=== PATIENT | male | born 1980 | race African-American/Black ===

== ENCOUNTER 2017-02-14 13:14 | Emergency (ER) | payer OTHER ==
[2017-02-14 13:20] VITALS: BP 132/75; PULSE 55; TEMP 98; BMI 28.7
--- NOTE | 2017-02-14 14:14 | PDOC ---
History of Present Illness - General History Source: Patient Exam Limitations: No Limitations - History of Present Illness Initial Comments: 02/14/17 14:20 Patient is a 36 year old male with no pertinent past medical history, presents to the emergency department with 2 weeks of right foot pain. Patient has a history of several broken metatarsals requiring surgical repair in 2012. Patient had broke his metatarsals after falling down stairs at work. Patient was evaluated here for the trauma but was ultimately transferred to [facility] and had surgery done . His last follow up with his doctor was a year ago . He state he has been fine up until two weeks ago. Patient state the pain is worse by the 4th and 1nd MT medially. Pain is 5/10 at rest and provoked with weight bearing and ambulation bringing it to a 9/10. Patient takes Tylenol with mild symptom relief.He reports today he has felt tingling 3rd-5th toes which he has not felt before .Denies recent trauma. 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 Denies special foot wear. Denies any fever or chills. <Kirt Haney - Last Filed: 02/14/17 14:24> - General History Source: Patient Exam Limitations: No Limitations - History of Present Illness Initial Comments: 02/14/17 16:06 Occurred: reports: other (2 weeks ) Severity: Yes: severe (with standing rt. foot ) Lower Extremity Pain Location: right: foot (1 st metarsal and 4th metaral ) Method of Injury: Yes: unknown Modifying Factors: improves with: rest <Ju Rahman - Last Filed: 02/14/17 19:02> - General Chief Complaint: Pain Stated Complaint: LEG PAIN Time Seen by Provider: 02/14/17 13:59 Lower Ext. Injury Location - Specific Injury Location Foot: right foot pain (rt. 1t & 4th metatarsal for 2 weeks worse with standing ) , right foot other (tingling rt. 3-5th toes today ) <Ju Rahman - Last Filed: 02/14/17 19:02> Extremity Pain Location - Extremity Pain Location Extremity Pain Locations: right: foot (1st and 4th metatarsals ), other (toes rt. 3-5 tingling today ) <Josiah,Kim - Last Filed: 02/14/17 19:02> Past History <Kirt Haney - Last Filed: 02/14/17 14:24> - Past Medical History Anemia: No Asthma: No Cancer: No Cardiac Disorders: No CVA: No COPD: No CHF: No Dementia: No Diabetes: No GI Disorders: No Disorders: No HTN: No Hypercholesterolemia: No Liver Disease: No Seizures: No Thyroid Disease: No - Surgical History Orthopedic Surgery: Yes (surgical repair rt. foot 1-5th metatarsal 2013 due to fractures ) Other Surgical History: 02/14/17 14:13 02/14/17 14:13 02/14/17 14:13 - Psycho/Social/Smoking Cessation Hx Suicidal Ideation: No Smoking Status: Yes Smoking History: Current some day smoker Have you smoked in the past 12 months: Yes Number of Cigarettes Smoked Daily: 1 Cigars Per Day: 1 Information on smoking cessation initiated: No 'Breaking Loose' booklet given: 03/20/13 Hx Alcohol Use: Yes (OCCASIONALLY) Drug/Substance Use Hx: No Substance Use Type: Alcohol Hx Substance Use Treatment: No <JosiahJu - Last Filed: 02/14/17 19:02> - Past Medical History Allergies/Adverse Reactions: Allergies Allergy/AdvReac Type Severity Reaction Status Date / Time No Known Drug Allergies Allergy Verified 02/14/17 13:20 Home Medications: Ambulatory Orders Naproxen [Naprosyn -] 500 mg PO BID PRN #14 tablet 02/14/17 Review of Systems - Review of Systems Able to Perform ROS?: Yes Constitutional: No: Symptoms Reported HEENTM: No: Symptoms Reported Respiratory: No: Symptoms reported Cardiac (ROS): No: Symptoms Reported ABD/GI: No: Symptoms Reported : No: Symptoms Reported Musculoskeletal: Yes: Joint Pain (rt. 1st and 4th metatarsal tenderness for 2 weeks worse with standing ). No: Joint Swelling Integumentary: No: Symptoms Reported Neurological: Yes: Paresthesia (rt 3-5 toes ) <JosiahJu - Last Filed: 02/14/17 19:02> *Physical Exam - Vital Signs Last Vital Signs Temp Pulse Resp BP Pulse Ox 98 F 55 L 18 132/75 100 02/14/17 13:18 02/14/17 13:18 02/14/17 13:18 02/14/17 13:18 02/14/17 13:18 <Kirt Haney - Last Filed: 02/14/17 14:24> - Vital Signs Last Vital Signs Temp Pulse Resp BP Pulse Ox 98 F 55 L 18 132/75 100 02/14/17 13:18 02/14/17 13:18 02/14/17 13:18 02/14/17 13:18 02/14/17 13:18 - Physical Exam General Appearance: Yes: Appropriately Dressed Vascular Pulses: Dorsalis-Pedis (R): 4+ Extremity: positive: Normal Capillary Refill, Normal Inspection, Normal Range of Motion, Tender (rt. 1st & 4th metatarsal ). negative: Swelling Integumentary: positive: Normal Color Neurologic: positive: Alert, Normal Response, Respond to painful stimul (in all areas rt. foot except rt. plantar 4th metatarsal area ), Responsive, Sensory Deficit (rt. plantar foot 4th metatarsal ) Deep Tendon Reflexes: Ankle (R): 4+ (no induration ) <Ju Rahman - Last Filed: 02/14/17 19:02> Procedures - Consent Consent obtained: From Patient - Additional Procedures Progress: 02/14/17 15:56 CRUTCHES GIVEN <uJ Rahman - Last Filed: 02/14/17 19:02> Medical Decision Making - Medical Decision Making 02/14/17 14:39 Patient is a 36 year old male with no pertinent past medical history, presents to the emergency department with 2 weeks of right foot pain. Patient has a history of several broken metatarsals requiring surgical repair in 2012. Patient had broke his metatarsals after falling down stairs at work. Patient was evaluated here for the trauma but was ultimately transferred to [facility] and had surgery done . His last follow up with his doctor was a year ago . He state he has been fine up until two weeks ago. Patient state the pain is worse by the 4th and 1nd MT medially. Pain is 5/10 at rest and provoked with weight bearing and ambulation bringing it to a 9/10. Patient takes Tylenol with mild symptom relief.He reports today he has felt tingling 3rd-5th toes which he has not felt before .Denies recent trauma. 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 Denies special foot wear. Denies any fever or chills. R/O NINOSKA INJURY RT. FOOT RT. FOOT PAIN PLAN: xray rt. foot NO ACUTE INJURY NOTED, HARDWARE IN PLACE RT. 1ST, 2ND AND 3RD METATARSAL ACETAMINOPHEN 1000 MG PO NOW FOLLOW UP WITH ORTHOPEDIST FROM [facility] AVOID ANY EXERCISE PODIATRY 02/14/17 15:44 02/14/17 15:57 02/14/17 16:07 <Ju Rahman - Last Filed: 02/14/17 19:02> *DC/Admit/Observation/Transfer - Attestations Scribe Attestion: 02/14/17 14:21 Documentation prepared by Kirt Haney, acting as medical office representative for Ju Rahman NP <Kirt Haney - Last Filed: 02/14/17 14:24> - Attestations Scribe Attestion: 02/14/17 14:17 portion of this document typed by Kirt Haney medical scribed under my direction and reviewed by and approved by myself and is accurate 02/14/17 19:01 <Ju Rahman - Last Filed: 02/14/17 19:02> Diagnosis at time of Disposition: Foot pain, right - Discharge Dispostion Disposition: HOME Condition at time of disposition: Stable - Prescriptions Prescriptions: Naproxen [Naprosyn -] 500 mg PO BID PRN #14 tablet PRN Reason: Pain - Referrals Referrals: Santos Jenkins MD [Staff Physician] - - Patient Instructions Additional Instructions: Follow-up with your orthopedist at [facility] as soon as possible Use crutches for ambulation and elevate your right leg as much as possible Follow-up with range ecologist to see whether or not orthotics can be made for your right foot and callus removal on right foot Return to emergency room if symptoms worsen Avoid any exercise cleared by orthopedist to resume Patient voiced understanding of discharge instructions and all questions were answered - Post Discharge Activity Work/School Note: Back to Work
[2017-02-14] MEDS ORDERED: ACETAMINOPHEN 500 MG TABLET (FP) PO ONE (14:40)
[2017-02-14] MEDS ORDERED: ACETAMINOPHEN 500 MG TABLET (FP) ONE (14:43)
== END 2017-02-14 16:14 | disposition home or self-care (01) ==
LOC: JERFT 13:14
DX: M79.671 Pain in right foot (principal); Z87.81 Personal history of (healed) traumatic fracture; X50.1XXA Overexertion from prolonged static or awkward postures, initial encounter; Y93.89 Activity, other specified; Y92.89 Other specified places as the place of occurrence of the external cause; Y99.0 Civilian activity done for income or pay
CPT/HCPCS: 73630-TC-RT; 99281-25